=== PATIENT | female | born 1935 | race Caucasian/White ===

== ENCOUNTER 2019-11-25 10:55 | Inpatient (IN) ==
[2019-11-25] MEDS ORDERED: TORADOL IV PRN (15:26)
[2019-11-25] MEDS ORDERED: LOVENOX SUBQ SCH (15:30)
[2019-11-25 16:22] LABS: URINE SOURCE CLEAN CATCH
[2019-11-25 16:24] LABS: BILIRUBIN URINE NEGATIVE (NEGATIVE); BLOOD URINE MODERATE (NEGATIVE); COLOR STRAW; GLUCOSE URINE NEGATIVE (NEGATIVE); KETONE URINE 10 mg/dL (NEGATIVE); LEUKOCYTES URINE NEGATIVE (NEGATIVE); NITRITE URINE NEGATIVE (NEGATIVE); PROTEIN URINE TRACE mg/dL (NEGATIVE); TURBIDITY URINE CLEAR (CLEAR); UROBILINOGEN URINE NORMAL (NORMAL)
[2019-11-25 16:26] LABS: UR EPITHELIAL CELLS <10 /HPF (<10); URINE BACTERIA NEGATIVE /HPF; URINE RBC TNTC /HPF (<10); URINE WBC <10 /HPF (<10)
[2019-11-25 16:47] LABS: HEMATOCRIT 37.5 % (37.0-47.0); HEMOGLOBIN 11.7 g/dL (12.0-16.0); MCH 30.4 PG (27-31); MCHC 31.2 g/dL (33-37); MCV 97.4 FL (81-99); MPV 10.2 FL (7.4-10.4); RBC 3.85 XMIL (4.2-5.4); WBC 7.11 X1000 (4.8-10.8)
[2019-11-25 17:11] LABS: AGAP 12; BUN 24 mg/dL (8-22); C REACTIVE PROT QUANT 29.96 mg/L (0.00-5.00); CALCIUM 8.9 mg/dL (8.8-10.2); CHLORIDE 105 mmol/L (98-107); COSMO 288; CREATININE 0.6 mg/dL (0.5-0.9); ESTIMATED GFR > 60; GLUCOSE 79 mg/dL (70-104); POTASSIUM 3.7 mmol/L (3.5-5.1); SODIUM 143 mmol/L (136-145); TCO2 26 mmol/L (25-35)
--- NOTE | 2019-11-25 17:20 | Diag Imaging Result Doc PS360 ---
EXAM: ANKLE 2 VIEWS RIGHT INDICATION: fracture TECHNIQUE: 2 views COMPARISON: None. FINDINGS: There are oblique nondisplaced fractures through the distal fibula and through the distal tibia at the base of the medial malleolus. No other discrete fracture is identified. There is no dislocation appreciated. There is soft tissue edema around the ankle. IMPRESSION: Fractures of the distal tibia and fibula as described. Electronically signed by Ramsey Menjivar 11/25/2019 5:18 PM
--- NOTE | 2019-11-25 21:32 | HISTORY AND PHYSICAL ---
SUBJECTIVE: History of fall Saturday. Complains of right shoulder pain, right- sided hip pain and ankle pain. HISTORY OF PRESENT ILLNESS: She is 83-year-old white female basically came in with a fall on Saturday and started having mostly shoulder pain, right-sided pain and right ankle pain. Upon evaluation, chest x-ray did not find any obvious injury on the ribs. Thoracic spine is negative. Right ankle showed a bimalleolar fracture, mostly left fibula and tibial on the medial side. The patient has not ambulated in my office, brought in the wheelchair. Basically admitted to the hospital for right ankle fracture and further evaluation of the right-sided shoulder pain. I spoke to Dr. Kendall. He is going to see in the morning. PAST MEDICAL HISTORY: Right-sided Banks's palsy, fibrocystic disease of breast, hypertension, glaucoma, osteoporosis, acid reflux disease, B12 deficiency, allergic rhinitis. History of polymyalgia rheumatica, taking prednisone off and on. PAST SURGICAL HISTORY: Left cataract surgery, hysterectomy, right parotidectomy, left labyrinthectomy due to Meniere's disease, carpal tunnel on the right side, vaginal hysterectomy. MEDICINES: In my office Prednisone Flonase, Lumigan, Calcium with vitamin D. ALLERGIES: Keflex and penicillin. SOCIAL HISTORY: She is . Retired from . No smoking. No alcohol. FAMILY HISTORY: Father of heart attack at 70. Mom of old age. FUNCTIONAL STATUS: She lives by herself. She has a daughter close by. HEALTH MAINTENANCE: Flu vaccine 2017, pneumococcal 2014, last mammography June 2017, colonoscopy [address] [facility] [address] Leon. REVIEW OF SYSTEMS: HEENT: No headache, chronically sniffles and no neck pain. Shoulder pain and right-sided thoracic pain. No shortness of breath, PND, orthopnea. GI: No nausea, vomiting, abdominal pain. : No history of hesitancy, frequency, dysuria. No swelling of legs. Right ankle pain not able to ambulate. No focal symptoms or weakness. OBJECTIVE: Temperature is 99.6 degrees, pulse 83. Vitals are stable.HEENT: Atraumatic, normocephalic. Pupils equal, reactive to light. Banks's palsy changes noted on the right side of the face. Neck: Supple. Chest: Bilateral air entry. Heart: Sounds are regular. Abdomen: Belly is soft, nontender. Good bowel sounds. Extremities: Right ankle is swollen. No obvious deficits. INVESTIGATIONS: CBC: White cell count 7.9, hematocrit 37.5, platelet 278,000. SMA-7 is normal. Vitamin D is normal. Urinalysis trace ketones, trace blood. Chest x-ray: COPD changes, nothing broke. X-ray of right ankle showed basically right fibula fracture and also tibial plateau and medial malleolus. ASSESSMENT AND PLAN: 1. An 83-year-old white female admitted to the hospital with right ankle fracture. Consult with Dr. Kendall. 2. Deep vein thrombosis prophylaxis with Lovenox. Pain for Toradol. 3. Gentle hydration 50 mL/h. 4. Glaucoma. Continue on eye drops. 5. Osteoporosis. Vitamin D level is normal. She used to take Prolia every [address] Duran. 6. History of polymyalgia rheumatica, on and off prednisone. 7. Vitamin B12 deficiency on replacement therapy. Discussed the plan of care with the patient and the son-in-law and will follow up on the pending labs. cc: Riky Nam MD MTDD
--- NOTE | 2019-11-25 21:50 | Diag Imaging Result Doc PS360 ---
EXAM: SHOULDER 1 VIEW RIGHT INDICATION: pain TECHNIQUE: 2 views COMPARISON: None. FINDINGS: There are mild degenerative changes at the AC joint. There is no discrete fracture, dislocation, or significant intrinsic osseous lesion, otherwise. The surrounding soft tissues are essentially unremarkable. IMPRESSION: Mild AC joint degenerative arthropathy. No evidence of acute osseous abnormality. Electronically signed by Ramsey Menjivar 11/25/2019 9:48 PM
--- NOTE | 2019-11-25 21:53 | Diag Imaging Result Doc PS360 ---
EXAM: RIBS ONLY RIGHT INDICATION: pain TECHNIQUE: 4 views COMPARISON: None. FINDINGS: There is evidence of a healed fracture involving the anterior aspect of the ninth rib on the right. No definite acute fracture or significant intrinsic osseous lesion is appreciated, otherwise. There is no evidence of pneumothorax or pleural fluid collection on the right. IMPRESSION: No definite acute rib fracture or other significant intrinsic osseous lesion. Electronically signed by Ramsey Menjivar 11/25/2019 9:51 PM
[2019-11-25] MEDS: COMBIGAN OPHTH SOLN BOTH EYES SCH (22:20)
[2019-11-25] MEDS: LUMIGAN 0.01% OPH SOLUTION BOTH EYES SCH (22:20)
[2019-11-25] MEDS: NS 1,000 ML IV SCH (22:26)
--- NOTE | 2019-11-26 08:21 | EKG Report ---
Test Performed on : 11/26/2019 07:50:43 AM Test Reason : cp Blood Pressure : / mmHG Vent. Rate : 081 BPM Atrial Rate : 081 BPM P-R Int : 134 ms QRS Dur : 078 ms QT Int : 374 ms P-R-T Axes : 075 048 025 degrees QTc Int : 434 ms Normal sinus rhythm. Normal ECG No previous ECGs available Confirmed by Ibrahima Farris MD ([id number]) on 11/26/2019 8:22:25 PM
[2019-11-26 08:22] LABS: SED RATE 49 mm/hr (0-20)
[2019-11-26 08:25] LABS: BASO# 0.01 X1000 (0.0-0.2); BASO% 0.2 % (0.0-0.8); EOS# 0.02 X1000 (0.0-0.7); EOS% 0.3 % (0.0-10.0); HEMOGLOBIN 10.3 g/dL (12.0-16.0); LYMPH# 0.96 X1000 (1.2-3.4); LYMPH% 16.5 % (20.5-51.1); MCH 30.4 PG (27-31); MCHC 31.2 g/dL (33-37); MCV 97.3 FL (81-99); MONO% 13.8 % (1.7-9.3); MPV 10.3 FL (7.4-10.4); NEUT# 4.02 X1000 (1.4-6.5); NEUT% 69.2 % (42.2-75.2); PLT 300 X1000 (130-400); RBC 3.39 XMIL (4.2-5.4); RDW 12.6 % (11.5-14.5); WBC 5.81 X1000 (4.8-10.8)
[2019-11-26] MEDS: COMBIGAN OPHTH SOLN BOTH EYES SCH ×2 (08:52→20:27)
[2019-11-26] MEDS: CENTRUM SILVER PO SCH (08:53)
[2019-11-26] MEDS ORDERED: MIRALAX PO ONE (08:56)
[2019-11-26] MEDS ORDERED: KEFZOL 1 GM/D5W 1 GM/50 ML IVPB IV ONE (09:03)
--- NOTE | 2019-11-26 10:19 | ORTHOPAEDICS CONSULTATION ---
DATE: 11/26/2019 REASON FOR CONSULTATION: Right distal tibia and fibula fractures. HISTORY OF PRESENT ILLNESS: Ms. Rosa is an 83-year-old female who came in after having a fall on Saturday, when she developed shoulder, right thigh, and right ankle pain. She has been unable to ambulate since that time. The right ankle showed a bimalleolar fracture. She has not been ambulating since that time, and instead was brought in a wheelchair. Orthopedics has been consulted for this. PAST MEDICAL HISTORY: Right-sided Banks's palsy, fibrocystic breast disease, hypertension, glaucoma, osteoporosis, acid reflux, polymyalgia rheumatica. PAST SURGICAL HISTORY: Cataracts, hysterectomy, parotidectomy, and right carpal tunnel. CURRENT MEDICATIONS: Prednisone, Flonase, Lumigan, calcium, and vitamin D. ALLERGIES: Penicillin. However, in her history and physical, it also shows an allergy to Keflex. SOCIAL HISTORY: Ms. Rosa lives at home. She is retired from . She is not a smoker, and she denies any alcohol use. REVIEW OF SYSTEMS: She denies any headache or neck pain. No nausea or vomiting. No abdominal pain. She is having some right ankle pain and swelling. PHYSICAL EXAMINATION: Ms. Rosa is sitting up in bed in no acute distress at this time. She is complaining of some right ankle pain. She has sensation intact distally to her ankle injury, and she is able to wiggle her toes. She does have some bruising and swelling to her right distal ankle. DIAGNOSTIC DATA: Most recent labs reveal a white count of 5.8, hemoglobin and hematocrit of 10 and 33. A rib x-ray revealed no obvious acute rib fracture, and her shoulder x-ray revealed no evidence of acute bony abnormality. However, there is some mild AC joint degenerative arthritis. Her right ankle x-ray reveals an oblique nondisplaced fracture through the distal fibula and through the base of the medial malleolus of the distal tibia. PLAN: Dr. Kendall will be taking Ms. Rosa to the OR for an open reduction internal fixation of her right ankle. She will be n.p.o. after midnight. We will have to change her Ancef as she also has an allergy to Keflex, but she will be getting antibiotics in the OR. Risks and benefits of surgery were discussed, including but not limited to, risk of anesthesia, blood clots, bleeding, nerve injury, infection, and . She wishes to proceed at this time. Dr. Kendall will be seeing her later in the evening. Dictated by ESTER Lainez for Ramsey Kendall MD cc: MD Riky Clayton MD
[2019-11-26] MEDS: NS 1,000 ML IV SCH ×2 (16:09→18:34)
[2019-11-26] MEDS: LUMIGAN 0.01% OPH SOLUTION BOTH EYES SCH (20:27)
--- NOTE | 2019-11-26 21:14 | PROGRESS NOTE ---
DATE: 11/26/2019 SUBJECTIVE: The patient is eating breakfast today. I did the x-rays of right shoulder, x-ray of right rib series. No significant findings noted. She has some pain in the shoulder. Preop EKG normal sinus, nothing acute. REVIEW OF SYSTEMS: Right ankle pain. EXAM: Low-grade fever vitals are stable. Elderly female in pain in the right ankle.Chest: Clear. Heart: Sounds are regular. Abdomen: Belly is soft, nontender. Extremities: Swelling in the right ankle. INVESTIGATIONS: CBC is normal. Sedimentation rate is 49. CRP was slightly high. ASSESSMENT AND PLAN: 1. Right ankle bimalleolar fracture waiting to be repaired tomorrow by Dr. Kendall. Appreciated his consult. 2. Reconcile glaucoma medications. 3. Preop Kefzol 1 dose communications tech. 4. Constipation on MiraLAX. 5. DVT prophylaxis on hold with Lovenox. 6. Polymyalgia rheumatica. Slightly elevated sedimentation rate currently asymptomatic other than right shoulder pain, Toradol for pain and will follow up. LEVEL OF DOCUMENTATION: 25 minutes. cc: Riky Nam MD
[2019-11-27] MEDS: CENTRUM SILVER PO SCH (08:33)
[2019-11-27] MEDS: COMBIGAN OPHTH SOLN BOTH EYES SCH ×2 (08:34→21:29)
[2019-11-27] MEDS ORDERED: DIPRIVAN 1% ONE (12:55)
[2019-11-27] MEDS ORDERED: SENSORCAINE 0.5%-EPI 1:200,000 ONE (13:39)
[2019-11-27] MEDS ORDERED: NEOSPORIN G.U. IRRIGANT ONE (13:39)
[2019-11-27] MEDS ORDERED: VANCOMYCIN 1 GM/NS 1 GM/250 ML IVPB ONE (13:49)
--- NOTE | 2019-11-27 13:56 | ORTHOPAEDICS PROGRESS NOTE ---
DATE: 11/27/2019 SUBJECTIVE DATA: Marta Rosa is seen for her right ankle fracture. She reports she is ready to have the surgery and wants to go home. She states her pain level is a 4/10 at this time. OBJECTIVE DATA: There is good sensation to the right lower extremity. There is some moderate swelling with ecchymosis present to the right ankle. There are good pedal pulses. There is good capillary refill in the toes. ASSESSMENT: Right bimalleolar ankle fracture. PLAN: We plan to do an ORIF of the right ankle today, sometime this afternoon. We will check back on her later and see if she is ready for surgery. Dictated by ESTER Mcgrath for Ramsey Kendall MD cc: ESTER Mcgrath MD Jagan Reddy, MD
[2019-11-27] MEDS ORDERED: OXY IR PO PRN (17:19)
[2019-11-27] MEDS ORDERED: MORPHINE IV PRN (17:19)
[2019-11-27] MEDS ORDERED: MILK OF MAGNESIA PO PRN (17:19)
[2019-11-27] MEDS ORDERED: ZOFRAN IV PRN (17:19)
[2019-11-27] MEDS ORDERED: HALDOL IV PRN (17:30)
[2019-11-27] MEDS: NS 1,000 ML IV SCH ×2 (17:49→18:15)
[2019-11-27] MEDS: TYLENOL PO SCH (18:15)
--- NOTE | 2019-11-27 18:30 | PROGRESS NOTE ---
DATE: 11/27/2019 SUBJECTIVE: The patient is in good spirits. Still complains of right shoulder pain. X-rays were negative. Patient is going for right ankle surgery this evening. Elevated sedimentation rate and CRP consistent with PMR. OBJECTIVE: Vital Signs: Stable. Physical examination: No change. ASSESSMENT AND PLAN: 1. Right ankle fracture, going for surgery. 2. Polymyalgia rheumatica, stable. Appreciated Dr. Kendall. 3. Continue home medicines. 4. After surgery disposition rehab placement. LEVEL OF DOCUMENTATION: 25 minutes. cc: Riky Nam MD
--- NOTE | 2019-11-27 18:48 | OPERATIVE NOTE ---
PROCEDURE DATE: 11/27/2019 PREOPERATIVE DIAGNOSIS: Right bimalleolar ankle fracture, nondisplaced. POSTOP DIAGNOSIS: Right bimalleolar ankle fracture, nondisplaced. PROCEDURE: Open reduction, internal fixation right ankle. SURGEON: Nataliia Kendall MD. ELECTRONIC DRAFTER: ESTER Mcgrath. Mr. Bedolla was necessary for proper retraction and manipulation during the case. ANESTHESIA: Spinal. COMPLICATION: None. PROCEDURE IN DETAIL: This 83-year-old female with a bimalleolar ankle fracture presents for surgical reduction and fixation. Risks, benefits, and no guarantees were discussed and she is willing to proceed. She was taken to the operating room and satisfactory anesthesia obtained. The right ankle was prepped and draped in usual sterile fashion. A time-out was taken to confirm operative site, procedure, and patient. The leg was wrapped with an Esmarch and tourniquet inflated to 300 mmHg. Under biplanar and multiplanar image guidance, the medial malleolus was noted to be minimally displaced. Two 4-0 cannulated screw guide pins were advanced through 2 small stab wounds at the tip of the medial malleolus up the metaphysis of the tibia in parallel fashion. Two 46 partially threaded 4-0 cancellous screws were then placed over the guidewires, securing parallel compression fixation of the medial malleolus. The guidewire was removed and the incisions closed with 3-0 nylon. Next, an incision was made over the distal fibula and oblique Farr B distal fibula fracture exposed. This was reduced anatomically and a 6 hole 1/3 tubular locking plate placed along the posterolateral aspect of the fibula to maintain reduced reduction. Two distal locking screws were placed followed by 3 bicortical screws with secure fixation. The C- arm was used to verify accurate fracture reduction and hardware placement. The wound was irrigated and closed in layers with 2-0 Vicryl followed by running 3-0 nylon suture. Surgical sites were infiltrated with Marcaine for pain control and a short-leg cast applied. She was recovered from anesthesia and transferred to the recovery room in stable condition. No intraoperative complications were noted. Instrument count and sponge count was correct at the time of closure. cc: MD Riky Clayton MD
[2019-11-27] MEDS: PERIDEX MT SCH (21:29)
[2019-11-27] MEDS: COLACE PO SCH (21:29)
[2019-11-27] MEDS: LUMIGAN 0.01% OPH SOLUTION BOTH EYES SCH (21:29)
[2019-11-28] MEDS ORDERED: VANCOMYCIN 1 GM/NS 1 GM/250 ML IVPB IV SCH (02:00)
[2019-11-28] MEDS: TYLENOL PO SCH ×3 (02:37→16:33)
[2019-11-28 07:33] LABS: HEMATOCRIT 36.9 % (37.0-47.0); HEMOGLOBIN 11.7 g/dL (12.0-16.0)
[2019-11-28 07:38] LABS: AGAP 11; BUN 13 mg/dL (8-22); CALCIUM 8.3 mg/dL (8.8-10.2); CHLORIDE 105 mmol/L (98-107); COSMO 284; CREATININE 0.5 mg/dL (0.5-0.9); ESTIMATED GFR > 60; GLUCOSE 105 mg/dL (70-104); SODIUM 142 mmol/L (136-145); TCO2 26 mmol/L (25-35)
[2019-11-28] MEDS: NS 1,000 ML IV SCH ×3 (09:11→20:16)
[2019-11-28] MEDS: CENTRUM SILVER PO SCH (09:12)
[2019-11-28] MEDS: FERROUS SULFATE PO SCH (09:13)
[2019-11-28] MEDS: COMBIGAN OPHTH SOLN BOTH EYES SCH ×2 (09:13→20:21)
[2019-11-28] MEDS: XARELTO PO SCH (09:13)
[2019-11-28] MEDS: PERIDEX MT SCH ×2 (09:13→20:17)
[2019-11-28] MEDS: KLOR-CON PO SCH ×2 (13:47→16:34)
--- NOTE | 2019-11-28 14:01 | PROGRESS NOTE ---
DATE: 11/28/2019 SUBJECTIVE: Ms. Rosa had right bimalleolar ankle fracture. She was operated. She has a cast and she is recovering. She is in some pain. OBJECTIVE: Lungs are clear. Vital signs are stable. ASSESSMENT/PLAN: We will continue with the current management on her. cc: MD Riky Ospina MD
--- NOTE | 2019-11-28 14:16 | ORTHOPAEDICS PROGRESS NOTE ---
DATE: 11/28/2019 The patient seen status post ORIF of her bimalleolar ankle fracture. At the present time, her cast is clean and dry. There is good capillary refill. Vital signs stable. She is currently stable at present time. She can be mobilized partial weightbearing on the right lower extremity. She will need discharge planning for home health or inpatient rehab. We will be available to check her again tomorrow and she can be discharged as her condition permits to assisted living or home health. cc: MD Riky Clayton MD
[2019-11-28] MEDS: COLACE PO SCH (20:16)
[2019-11-28] MEDS: LUMIGAN 0.01% OPH SOLUTION BOTH EYES SCH (20:16)
[2019-11-29] MEDS: XARELTO PO SCH (06:00)
[2019-11-29 07:01] LABS: HEMATOCRIT 35.3 % (37.0-47.0); HEMOGLOBIN 11.1 g/dL (12.0-16.0)
[2019-11-29 07:32] LABS: AGAP 12; BUN 15 mg/dL (8-22); CALCIUM 8.8 mg/dL (8.8-10.2); CHLORIDE 105 mmol/L (98-107); COSMO 284; CREATININE 0.7 mg/dL (0.5-0.9); ESTIMATED GFR > 60; GLUCOSE 99 mg/dL (70-104); POTASSIUM 3.6 mmol/L (3.5-5.1); SODIUM 142 mmol/L (136-145); TCO2 25 mmol/L (25-35)
[2019-11-29] MEDS: TYLENOL PO SCH ×3 (07:42→16:43)
[2019-11-29] MEDS: NS 1,000 ML IV SCH (07:43)
[2019-11-29] MEDS: KLOR-CON PO SCH ×3 (08:43→16:43)
[2019-11-29] MEDS: FERROUS SULFATE PO SCH (08:43)
[2019-11-29] MEDS: CENTRUM SILVER PO SCH (08:43)
[2019-11-29] MEDS: COMBIGAN OPHTH SOLN BOTH EYES SCH ×2 (08:44→21:43)
[2019-11-29] MEDS: PERIDEX MT SCH ×2 (08:44→21:43)
--- NOTE | 2019-11-29 10:16 | ORTHOPAEDICS PROGRESS NOTE ---
DATE: 11/29/2019 Ms. Rosa is seen status post ORIF of her ankle. Her cast is clean and dry. She is afebrile with stable vital signs. At this point, she can be transferred to inpatient rehab or home with home health. I will need to see her in 2 weeks for followup and change of the cast. I will be available as needed at this point. She can be discharged with therapy, partial weightbearing on the involved ankle. cc: MD Riky Clayton MD
--- NOTE | 2019-11-29 13:11 | PROGRESS NOTE ---
DATE: 11/29/2019 SUBJECTIVE: Ms. Rosa is doing better. She has right ankle fracture. She is recovering. She was seen by Dr. Kendall today. PHYSICAL EXAMINATION: Unchanged. Lungs: Clear. Heart: Heart sounds are normal. Vital Signs: Stable. LABORATORY DATA: Hemoglobin and hematocrit are stable. Electrolytes are normal. Glucose is 99. -4 cc: MD Riky Ospina MD
[2019-11-29] MEDS: COLACE PO SCH (21:43)
[2019-11-29] MEDS: LUMIGAN 0.01% OPH SOLUTION BOTH EYES SCH (22:15)
[2019-11-30] MEDS: TYLENOL PO SCH ×4 (02:16→17:16)
[2019-11-30] MEDS: NS 1,000 ML IV SCH ×2 (05:35→17:17)
[2019-11-30] MEDS: XARELTO PO SCH (06:52)
[2019-11-30 06:55] LABS: HEMOGLOBIN 11.1 g/dL (12.0-16.0)
[2019-11-30] MEDS: KLOR-CON PO SCH ×3 (08:20→17:16)
[2019-11-30] MEDS: PERIDEX MT SCH ×2 (08:20→21:26)
[2019-11-30] MEDS: CENTRUM SILVER PO SCH (08:21)
[2019-11-30] MEDS: FERROUS SULFATE PO SCH (08:21)
[2019-11-30] MEDS: COMBIGAN OPHTH SOLN BOTH EYES SCH ×2 (08:21→21:26)
[2019-11-30] MEDS ORDERED: MIRALAX PO ONE (10:08)
--- NOTE | 2019-11-30 12:55 | Diag Imaging Result Doc PS360 ---
EXAM: CHEST-1 VIEW INDICATION: REHAB TECHNIQUE: One view COMPARISON: 11/25/2019 FINDINGS: The patient is significantly rotated toward the right. There are old rib fractures on the left. The lungs are grossly clear. There is no discrete pleural fluid collection or pneumothorax. The cardiomediastinal silhouette and central vasculature are grossly unremarkable. IMPRESSION: No evidence of acute pathology by plain radiograph. Electronically signed by Ramsey Menjivar 11/30/2019 12:52 PM
[2019-11-30] MEDS: LUMIGAN 0.01% OPH SOLUTION BOTH EYES SCH (21:25)
[2019-11-30] MEDS: COLACE PO SCH (21:25)
--- NOTE | 2019-11-30 21:47 | PROGRESS NOTE ---
DATE: 11/30/2019 SUBJECTIVE: The patient is doing better and no family is around here. She is better off go for rehab. REVIEW OF SYSTEMS: None reported. OBJECTIVE: Temperature is 98 degrees. Vitals are stable.HEENT: Stable Banks's palsy on the right side. Neck: Supple. Chest: Clear. Heart: Sounds are regular. Belly is soft, nontender. INVESTIGATIONS: Hematocrit 35. SMA 7 is normal. ASSESSMENT AND PLAN: 1. Status post right ankle fracture with a cast and on intravenous fluids. 2. Out of the bed with physical therapy. 3. Continue glaucoma drops. 4. Deep vein thrombosis prophylaxis with Xarelto. 5. Constipation on MiraLAX and skilled nursing placement has been discussed pending insurance approval. Initiated baseline chest x-ray stable and follow up. LEVEL OF DOCUMENTATION: 25 minutes. cc: Riky Nam MD
[2019-12-01] MEDS: TYLENOL PO SCH ×3 (05:53→16:54)
[2019-12-01] MEDS: COMBIGAN OPHTH SOLN BOTH EYES SCH ×3 (06:14→23:00)
[2019-12-01] MEDS: XARELTO PO SCH (06:14)
--- NOTE | 2019-12-01 08:11 | DISCHARGE SUMMARY ---
ADMISSION DATE: 11/25/2019 DISCHARGE DATE: 12/03/2019 DISCHARGING DIAGNOSIS: Right ankle bimalleolar fracture. SECONDARY DIAGNOSES: 1. Right-sided Banks's palsy, stable. 2. Fibrocystic disease of breast. 3. Glaucoma. 4. Osteoporosis. 5. B12 deficiency. 6. Allergic rhinitis. 7. History of polymyalgia rheumatica, off and on prednisone. CONSULTS: Dr. Kendall. PROCEDURES: Open reduction internal fixation of the right ankle, followed by cast. BRIEF HISTORY: Please see the H and P that was done on 11/25/2019. In brief, she is an 83-year- old, white female, who was admitted to the hospital directly from my office after she fell at home on Saturday. The patient complains of shoulder pain, right-sided chest pain, and right ankle pain. X-rays revealed right bimalleolar ankle fracture. X-ray of the right shoulder and chest x-ray did not show any evidence of fracture. The patient was seen by Dr. Kendall. He did open reduction internal fixation. Postoperative course was uneventful. The patient was sent to rehab for convalescence. LABORATORY DATA: CBC: White cell count 5.8, hematocrit 33, platelets 300,000. SMA-7 is normal. Sedimentation rate was 49. Urinalysis is clear. Vitamin D 39.4. DISCHARGE INSTRUCTIONS: 1. Out of the bed with Physical Therapy. 2. Centrum Silver 1 tablet daily, Combigan 1 drop to both eyes b.i.d., Lumigan 1 drop to both eyes b.i.d., iron sulfate 325 daily, Xarelto 10 mg daily for 1 month, Citracal with vitamin D 1 tablet p.o. b.i.d., Colace 200 at bedtime, Ultracet 1 tablet every 6 hours p.r.n. pain. FOLLOWUP: Follow up with Dr. Kendall in 2 weeks, as well as in my office. cc: MD DALLIN River
[2019-12-01] MEDS: KLOR-CON PO SCH ×3 (12:10→23:00)
[2019-12-01] MEDS: CENTRUM SILVER PO SCH (12:11)
[2019-12-01] MEDS: FERROUS SULFATE PO SCH (12:11)
[2019-12-01] MEDS: PERIDEX MT SCH (12:12)
--- NOTE | 2019-12-01 22:12 | PROGRESS NOTE ---
DATE: 12/01/2019 SUBJECTIVE: An 84-year-old white female basically admitted to the hospital for a right ankle fracture repair. Currently, she is stable. She is supposed to go to [facility]. Family decided to go to [facility]. I spoke with the social director and currently she is stable. OBJECTIVE: Vital Signs: Stable. HEENT: No change. ASSESSMENT AND PLAN: Right ankle fracture repair stable. Paperwork was done and waiting for placement. Continue present treatment and social workers are arranging to get a bed [facility]. Will follow up. LEVEL OF DOCUMENTATION: Was 15 minutes. cc: Riky Nam MD
[2019-12-01] MEDS: LUMIGAN 0.01% OPH SOLUTION BOTH EYES SCH (23:00)
[2019-12-02] MEDS: COLACE PO SCH ×2 (00:49→19:56)
[2019-12-02] MEDS: PERIDEX MT SCH ×3 (00:49→19:56)
[2019-12-02] MEDS: TYLENOL PO SCH ×3 (07:13→17:30)
[2019-12-02] MEDS: XARELTO PO SCH (07:13)
[2019-12-02] MEDS: CENTRUM SILVER PO SCH (09:35)
[2019-12-02] MEDS: KLOR-CON PO SCH ×3 (09:36→17:21)
[2019-12-02] MEDS: FERROUS SULFATE PO SCH (09:36)
[2019-12-02] MEDS: COMBIGAN OPHTH SOLN BOTH EYES SCH ×2 (09:37→19:58)
[2019-12-02] MEDS: NS 1,000 ML IV SCH ×2 (11:39→20:00)
[2019-12-02] MEDS: LUMIGAN 0.01% OPH SOLUTION BOTH EYES SCH (19:57)
--- NOTE | 2019-12-02 22:06 | PROGRESS NOTE ---
DATE: 12/02/2019 SUBJECTIVE: The patient is doing better. Family decided to go to [facility]. Paperwork still pending. OBJECTIVE: EXAM: Vital signs: Vitals are stable and physical exam no change. ASSESSMENT AND PLAN: Right ankle fracture, status post open reduction and internal fixation and the cast stable. Continue the physical therapy. Paperwork is ready to be discharged when the bed is available. LEVEL OF DOCUMENTATION: Is 15 minutes. cc: Riky Nam MD
[2019-12-03] MEDS: PERIDEX MT SCH (01:27)
[2019-12-03] MEDS: COLACE PO SCH (01:27)
[2019-12-03] MEDS: LUMIGAN 0.01% OPH SOLUTION BOTH EYES SCH (01:27)
[2019-12-03] MEDS: COMBIGAN OPHTH SOLN BOTH EYES SCH ×2 (01:27→09:11)
[2019-12-03] MEDS: TYLENOL PO SCH ×2 (01:28→09:08)
[2019-12-03] MEDS: XARELTO PO SCH (05:14)
[2019-12-03 07:13] VITALS: BP 141/79
[2019-12-03] MEDS: FERROUS SULFATE PO SCH (09:07)
[2019-12-03] MEDS: KLOR-CON PO SCH (09:07)
[2019-12-03] MEDS: CENTRUM SILVER PO SCH (09:08)
== END 2019-12-03 09:52 | DRG 494 ==
LOC: DIRADM 10:55 → 4N 13:17
PROVIDERS: ADMIT Internal Medicine; ATTEND Internal Medicine